=== PATIENT | female | born 1970 | race Caucasian/White ===

== ENCOUNTER 2019-11-07 14:17 | Observation (INO) | payer SELFPAY ==
[2019-11-07] VITALS (9 sets, daily range): BP systolic 127–219; BP diastolic 85–138; PULSE 71–148; RESP 17–20; TEMP 36–37.1; O2SAT 96–99; BMI 23.3
--- NOTE | 2019-11-07 14:36 | ED_ITS ---
HPI - Neuro Symptoms/Deficit General: Chief Complaint: Neuro Symptoms/Deficit Stated Complaint: high bp, high hr Time Seen by Provider: 11/07/19 14:20 History of Present Illness: HPI Narrative: 49 yo female who presents with complaint of weakness on her left side began at 530 this morning. 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 Her says her speech is still off a little bit too. She is not had any chest pain or shortness of breath. Associated symptoms: Deny chest pain, malaise, nausea or vomiting Review of Systems Const: Denies: fever(s), chills, body aches, change in appetite, fatigue or malaise ENMT: Denies: throat pain, ear or mastoid pain, nasal discharge or nasal congestion Card: Denies: chest pain, edema, dyspnea on exertion or orthopnea Resp: Denies: dyspnea, productive cough or non-productive cough GI: Denies: abdominal pain, nausea, vomiting, hematemesis, coffee ground emesis, diarrhea, constipation, bloating, hematochezia or melena : Denies: flank pain, difficulty voiding, dysuria, urinary frequency or urinary urgency Skin/Breast: Denies: rash or pruritus PFSH ED PFSH: Medical History Heavy drinker of alcohol Initially stated 8-12 beers per day, later clarifies that it is on the days off. Smoking addiction 1.5 packs per day Surgical History History of History of facial surgery Hx of laparoscopic gastric banding Family History Father , Massive [place] CAD (coronary artery disease) Other Hypertension Social History Smoking and tobacco status: current every day smoker cigarettes Packs smoked per day: 1.5 Alcohol intake: current Alcohol intake frequency: 3 or more drinks per day Alcohol type: beer Desire information about alcohol rehabilitation?: Yes Counseling given: Yes Last alcohol use date: 11/06/19 Lives independently: Yes Household members: significant other Marital status: Single Marital status details: Engaged Current occupational status: employed NIH stroke score NIHSS: Level Of Consciousness - 1a: 0 Level Of Consciousness Questions - 1b: Both Correct Level Of Consciousness Commands - 1c: Both Correct Best Gaze - 2: Normal Visual Guerra - 3: No Visual Loss Facial Palsy - 4: Normal Motor Arm Right - 5: No Drift Motor Arm Left - 5: No Drift Motor Leg Right - 6: No Drift Motor Leg Left - 6: No Drift Limb Ataxia - 7: Present In One Limb Sensory - 8: Normal Best Language - 9: No Aphasia Dysarthia - 10: Mild/Moderate Dysarthia Extinction And Inattention - 11: 0 Score: Total Score: 2 Physical Exam Const: COMMON NORMALS: no acute distress GENERAL APPEARANCE: cooperative and comfortable ORIENTATION/CONSCIOUSNESS: Yes awake, Yes oriented to person, Yes oriented to place and Yes oriented to time HENMT: COMMON NORMALS: normocephalic, atraumatic, moist oral mucous membranes and oropharynx normal HEAD & SCALP: normocephalic and atraumatic Eye: COMMON NORMALS: Equal, round and reactive pupils present, EOMs intact bilaterally, conjunctivae normal and no scleral icterus CONJUNCTIVA: Yes conjunctivae normal PUPIL: Yes Equal, round and reactive pupils present Neck/C-Spine: COMMON NORMALS: full ROM, no lymphadenopathy, supple and no JVD Lymph: LYMPHATIC: no lymphadenopathy noted and no lymphedema noted Resp: COMMON NORMALS: normal respiratory effort, No retractions, No use of accessory muscles and clear to auscultation bilaterally AUSCULTATION: clear to auscultation bilaterally Cardio: COMMON NORMALS: no JVD, regular rate, regular rhythm and No murmurs present (Cardio) RATE: regular rate RHYTHM: regular rhythm GI: COMMON NORMALS: Soft to palpation and No hepatosplenomegaly present AUSCULTATION: Yes normoactive bowel sounds PALPATION: Yes Soft to palpation, No Tenderness to palpation present (GI), No Guarding due to palpation present (GI) and Yes No hepatosplenomegaly present Extremity: COMMON NORMALS: normal to inspection, capillary refill normal, no clubbing, cyanosis or edema, no calf tenderness and no pedal edema Neuro: SENSORIUM/ORIENTATION: Yes oriented to person, Yes oriented to place and Yes oriented to time Skin: COMMON NORMALS: no rashes or lesions noted GENERAL SKIN EXAM: no rashes or lesions noted Course Vital Signs: Vital signs: Vital Signs Temperature 98.5 F 11/08/19 13:14 Pulse Rate 79 11/08/19 13:14 Respiratory Rate 18 11/08/19 13:14 Blood Pressure 128/80 11/08/19 13:14 Pulse Oximetry 98 11/08/19 13:14 MDM - Neuro Symptoms/Deficit Lab Data: Labs: Lab Results 11/07/19 11/07/19 11/07/19 Range/Units 14:30 14:30 14:30 WBC 9.3 (4.0-10.0) 10^3/ uL RBC 5.77 H (4.1-5.3) 10^6/u L Hgb 16.9 H (11.5-15.3) g/dL Hct 52.1 H (37.0-47.0) % MCV 90.3 (81-99) fL MCH 29.3 (28.0-34.0) pg MCHC 32.4 (30.0-36.0) g/dL RDW 13.8 (12.1-15.1) % Plt Count 312 (130-400) 10^3/c mm MPV 10.0 (7.4-10.4) fL Neut % (Auto) 73.4 % Lymph % (Auto) 18.2 % [place] % (Auto) 5.9 % Eos % (Auto) 1.8 % Baso % (Auto) 0.4 % Neut # (Auto) 6.83 (1.8-7.7) 10^3/u L Lymph # (Auto) 1.7 (0.8-4.8) 10^3/u L [place] # (Auto) 0.6 (0.2-0.9) 10^3/u L Eos # (Auto) 0.2 (0.0-0.8) 10^3/u L Baso # (Auto) 0.0 (0.0-0.1) 10^3/u L Nucleated RBC % (a uto) 0 % Nucleated RBCs # 0.0 /100WBC PT 11.70 (10.5-13.3) SECO NDS INR 0.83 (0.8-1.2) APTT 25.0 (23.9-36.7) SECO NDS Sodium 139 (136-145) mmol/L Potassium 4.6 (3.5-5.1) mmol/L Chloride 99 (98-107) mmol/L Carbon Dioxide 23 (22-29) mmol/L Anion Gap 21.6 H (5-19) BUN 7 (6-20) mg/dL Creatinine 0.8 (0.5-0.9) mg/dL GFR Calculation 76.9 L (90-130) mL/min Glucose 88 (65-115) mg/dL Estimat Average Gl ucose Hemoglobin A1c (4.0-6.0) % Calculated Osmolal ity 283 L (285-295) mOsm/k g Calcium 10.6 H (8.5-10.5) mg/dL Magnesium (1.7-2.3) mg/dL Total Bilirubin 0.6 (0.15-1.2) mg/dL AST 48 H (0-32) U/L ALT 27 (0-33) U/L Alkaline Phosphata se 90 (35-105) IU/L Total Protein 8.1 (6.6-8.7) g/dL Albumin 5.2 (3.5-5.2) g/dL Globulin 2.9 (1.3-4.6) g/dL 11/07/19 11/07/19 Range/Units 14:30 14:30 WBC (4.0-10.0) 10^3/ uL RBC (4.1-5.3) 10^6/u L Hgb (11.5-15.3) g/dL Hct (37.0-47.0) % MCV (81-99) fL MCH (28.0-34.0) pg MCHC (30.0-36.0) g/dL RDW (12.1-15.1) % Plt Count (130-400) 10^3/c mm MPV (7.4-10.4) fL Neut % (Auto) % Lymph % (Auto) % [place] % (Auto) % Eos % (Auto) % Baso % (Auto) % Neut # (Auto) (1.8-7.7) 10^3/u L Lymph # (Auto) (0.8-4.8) 10^3/u L [place] # (Auto) (0.2-0.9) 10^3/u L Eos # (Auto) (0.0-0.8) 10^3/u L Baso # (Auto) (0.0-0.1) 10^3/u L Nucleated RBC % (a uto) % Nucleated RBCs # /100WBC PT (10.5-13.3) SECO NDS INR (0.8-1.2) APTT (23.9-36.7) SECO NDS Sodium (136-145) mmol/L Potassium (3.5-5.1) mmol/L Chloride (98-107) mmol/L Carbon Dioxide (22-29) mmol/L Anion Gap (5-19) BUN (6-20) mg/dL Creatinine (0.5-0.9) mg/dL GFR Calculation (90-130) mL/min Glucose (65-115) mg/dL Estimat Average Gl ucose 103 Hemoglobin A1c 5.2 (4.0-6.0) % Calculated Osmolal ity (285-295) mOsm/k g Calcium (8.5-10.5) mg/dL Magnesium 2.0 (1.7-2.3) mg/dL Total Bilirubin (0.15-1.2) mg/dL AST (0-32) U/L ALT (0-33) U/L Alkaline Phosphata se (35-105) IU/L Total Protein (6.6-8.7) g/dL Albumin (3.5-5.2) g/dL Globulin (1.3-4.6) g/dL Discharge Plan Discharge Patient Disposition: Admitted As Inpatient Admit Provider: Joby Zamudoi Clinical Impression: CVA (cerebral vascular accident) Condition: Stable Discharge Diet: Cardiac Discharge Activity: Resume usual activity Interventions: ED Discharge Assessment Last Done: 11/07/19 16:14 ED Charges Last Done: 11/07/19 16:16 Discharge Date/Time: 11/07/19 16:18 Coding Level of Care Code ED Information Technology Analyst for Cheyenne German
--- NOTE | 2019-11-07 14:39 | CTR_ITS ---
PROCEDURE INFORMATION: Exam: CT Head Without Contrast Exam date and time: 11/07/2019 2:45 PM Age: 49 years old Clinical indication: Weakness, facial; Additional info: Symptoms of acute stroke TECHNIQUE: Imaging protocol: Computed tomography of the head without contrast. Radiation optimization: All CT scans at this facility use at least one of these dose optimization techniques: automated exposure control; mA and/or kV adjustment per patient size (includes targeted exams where dose is matched to clinical indication); or iterative reconstruction. COMPARISON: No relevant prior studies available. RADIATION DOSE METRICS: Total DLP (mGy-cm): 775.47 FINDINGS: Brain: Normal. No hemorrhage. Unremarkable white matter. No mass effect. Ventricles: Normal. No ventriculomegaly. Bones/joints: Unremarkable. No acute fracture. Sinuses: Visualized sinuses are unremarkable. No fluid levels. Mastoid air cells: Visualized mastoid air cells are well aerated. Soft tissues: Unremarkable. CT/CT head wo con* [id number] IMPRESSION: No acute intracranial abnormality. Radiation Dose CTDIVOL = (mGy): DLP = 775.47 (mGy-cm)
--- NOTE | 2019-11-07 14:39 | XRR_ITS ---
PROCEDURE INFORMATION: Exam: XR Chest, 1 View Exam date and time: 11/07/2019 2:42 PM Age: 49 years old Clinical indication: Other: Weakness; Additional info: Weakness, CVA TECHNIQUE: Imaging protocol: XR of the chest Views: 1 view. COMPARISON: No relevant prior studies available. FINDINGS: Lungs: Unremarkable. No consolidation. Pleural space: Unremarkable. No pleural effusion. No pneumothorax. Heart/Mediastinum: Unremarkable. No cardiomegaly. Bones/joints: No acute abnormality. XR/XR chest 1V portable [id number] IMPRESSION: No acute findings.
--- NOTE | 2019-11-07 14:39 | ECG_ITS ---
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 Measurements Intervals Lilly Rate: 92 P: 50 KS: 134 QRS: 22 QRSD: 93 T: 48 QT: 391 QTc: 484 Interpretive Statements SINUS RHYTHM POSSIBLE RIGHT VENTRICULAR CONDUCTION DELAY [RSR (QR) IN V1/V2] No previous ECG available for comparison Electronically Signed On 11-07-2019 20:43:13 CDT by Ihsan Osorio M.D. [id number]
--- NOTE | 2019-11-07 14:39 | CTR_ITS ---
PROCEDURE INFORMATION: Exam: CT Angiography Head With Contrast Exam date and time: 11/07/2019 2:45 PM Age: 49 years old Clinical indication: Weakness; Additional info: Left sided weakness TECHNIQUE: Imaging protocol: Computed tomography angiography of the head with intravenous contrast. 3D rendering: MIP and/or 3D reconstructed images were created by the technologist. Radiation optimization: All CT scans at this facility use at least one of these dose optimization techniques: automated exposure control; mA and/or kV adjustment per patient size (includes targeted exams where dose is matched to clinical indication); or iterative reconstruction. Contrast material: OMNIPAQUE 350; Contrast volume: 95 ml; Contrast route: INTRAVENOUS (IV); COMPARISON: CT head wo con* [id number] 11/07/2019 2:29 PM RADIATION DOSE METRICS: Total DLP (mGy-cm): 1716.33 FINDINGS: ANTERIOR CIRCULATION: Right internal carotid artery: Unremarkable. Intracranial segment is patent with no significant stenosis. No aneurysm. Right middle cerebral artery: Unremarkable. No occlusion or significant stenosis. No aneurysm. Right anterior cerebral artery: Unremarkable. No occlusion or significant stenosis. No aneurysm. Left internal carotid artery: Unremarkable. Intracranial segment is patent with no significant stenosis. No aneurysm. Left middle cerebral artery: Unremarkable. No occlusion or significant stenosis. No aneurysm. Left anterior cerebral artery: Unremarkable. No occlusion or significant stenosis. No aneurysm. POSTERIOR CIRCULATION: Right vertebral artery: Unremarkable. No occlusion or significant stenosis. No aneurysm. Left vertebral artery: Unremarkable. No occlusion or significant stenosis. No aneurysm. Basilar artery: Unremarkable. No occlusion or significant stenosis. No aneurysm. Right posterior cerebral artery: Unremarkable. No occlusion or significant stenosis. No aneurysm. Left posterior cerebral artery: Unremarkable. No occlusion or significant stenosis. No aneurysm. IMPRESSION: Patent intracranial arteries. PROCEDURE INFORMATION: Exam: CT Angiography Neck With Contrast Exam date and time: 11/07/2019 2:45 PM Age: 49 years old Clinical indication: Weakness; Additional info: Left sided weakness TECHNIQUE: Imaging protocol: Computed tomography angiography of the neck with intravenous contrast. 3D rendering: MIP and/or 3D reconstructed images were created by the technologist. Radiation optimization: All CT scans at this facility use at least one of these dose optimization techniques: automated exposure control; mA and/or kV adjustment per patient size (includes targeted exams where dose is matched to clinical indication); or iterative reconstruction. Contrast material: OMNIPAQUE 350; Contrast volume: 95 ml; Contrast route: INTRAVENOUS (IV); COMPARISON: CT head wo con* [id number] 11/07/2019 2:29 PM RADIATION DOSE METRICS: Total DLP (mGy-cm): 1716.33 FINDINGS: Right common carotid artery: No stenosis. No dissection or occlusion. Right internal carotid artery: Mild atherosclerotic plaque deposition in the proximal right ICA causes mild stenosis. Right external carotid artery: No occlusion or stenosis of the origin. Right vertebral artery: No stenosis. No dissection or occlusion. Left common carotid artery: No stenosis. No dissection or occlusion. Left internal carotid artery: Mild atherosclerotic plaque deposition in the proximal left ICA causes mild stenosis. Left external carotid artery: No occlusion or stenosis of the origin. Left vertebral artery: No stenosis. No dissection or occlusion. Bones/joints: [id number] degenerative changes are observed in the cervical spine. 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 No area of significant canal stenosis. No cervical spine fracture is seen. Spinal alignment is normal. Soft tissues: Normal. No significant soft tissue swelling. CT/CT angio headneck* [id number] IMPRESSION: Mild stenoses of bilateral proximal ICAs REFERENCES: NASCET CRITERIA. The degree of internal carotid artery stenosis is based on NASCET criteria. Normal is no stenosis. Mild is less than 50% stenosis. Moderate is 50-69% stenosis. Severe is 70% to 99% stenosis. Total occlusion is no detectable patent lumen. Radiation Dose CTDIVOL = (mGy): DLP = 1716.33~1716.33 (mGy-cm)
[2019-11-07 14:51] LABS: Basophils % 0.4 %; Eosinophils # 0.2 10^3/uL (0.0-0.8); Eosinophils % 1.8 %; Hematocrit 52.1 % (37.0-47.0); Hemoglobin 16.9 g/dL (11.5-15.3); Lymphocytes # 1.7 10^3/uL (0.8-4.8); Lymphocytes % 18.2 %; Mean Corpuscular HGB Conc 32.4 g/dL (30.0-36.0); Mean Corpuscular Hemoglobin 29.3 pg (28.0-34.0); Mean Corpuscular Volume 90.3 fL (81-99); Monocytes # 0.6 10^3/uL (0.2-0.9); Monocytes % 5.9 %; Neutrophils # 6.83 10^3/uL (1.8-7.7); Neutrophils % 73.4 %; Nucleated Red Blood Cells % 0 %; Platelet Count 312 10^3/cmm (130-400); Red Blood Count 5.77 10^6/uL (4.1-5.3); Red Cell Distribution Width 13.8 % (12.1-15.1); White Blood Count 9.3 10^3/uL (4.0-10.0)
[2019-11-07 14:57] LABS: INR 0.83 (0.8-1.2)
[2019-11-07] MEDS: iohexol 350 mg/mL 100 mL Btl IV (14:57)
[2019-11-07 15:08] LABS: Alanine Aminotransferase 27 U/L (0-33); Albumin Level 5.2 g/dL (3.5-5.2); Alkaline Phosphatase 90 IU/L (35-105); Anion Gap 21.6 (5-19); Aspartate Amino Transferase 48 U/L (0-32); Blood Urea Nitrogen 7 mg/dL (6-20); Calcium 10.6 mg/dL (8.5-10.5); Carbon Dioxide 23 mmol/L (22-29); Chloride 99 mmol/L (98-107); Globulin 2.9 g/dL (1.3-4.6); Glomerular Filtration Rate 76.9 mL/min (90-130); Glucose 88 mg/dL (65-115); Osmolality Calculated 283 mOsm/kg (285-295); Potassium 4.6 mmol/L (3.5-5.1); Sodium 139 mmol/L (136-145); Total Bilirubin 0.6 mg/dL (0.15-1.2); Total Protein 8.1 g/dL (6.6-8.7)
[2019-11-07] MEDS: labetalol 5 mg/mL SDV 20mL 10 MG IV (15:44)
--- NOTE | 2019-11-07 16:59 | PM.HP ---
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 She did not have the symptoms the night before. She also describes having some pain in her head , and some mild dizziness. She denies any past history of stroke. In ER she was noted with improvement in previous symptoms, and with perhaps minimal left-sided weakness remaining, perhaps minimal if any slurred speech, but with some persistent facial droop. Blood pressure on presentation 219/138. CT of the head is unremarkable. CTA of the head with mild bilateral carotid stenosis. Blood pressure in ER improved initially down to 165/105, during my visit again is up to 183/116. Observation hospital is requested due to suspicion of acute CVA outside of therapeutic window for TPA. Elevated blood pressure. She denies knowing of history of hypertension in the past. She does state that sometime in the past has had tremors as a symptom of withdrawal from alcohol. Denies severe withdrawal. She has been trying to cut down how much she drinks. She knows she needs to quit smoking. She denies any drug use. Review of Systems Const: Reports: other (Headache this morning, mild dizziness); Denies: fever(s), chills, body aches or malaise Eyes: Denies: change in vision or eye redness ENMT: Denies: throat pain, oral sores or ear or mastoid pain Card: Denies: chest pain, edema, pre-syncope or dyspnea on exertion Resp: Denies: dyspnea, productive cough, change in phlegm color or hemoptysis GI: Denies: abdominal pain, nausea, vomiting, diarrhea, constipation, hematochezia or melena : Denies: flank pain, urinary frequency or hematuria Musc: Denies: back pain, joint swelling or joint redness Skin/Breast: Denies: rash, sores or new lesions Neuro: Reports: headache(s), weakness in extremities, dizziness and Slurred speech present; Denies: numbness in extremities, sensory changes, confusion, difficulty communicating thoughts, seizure-like activity or involuntary movements Endo: Denies: polyuria or polydipsia Shawn/Lymph: Denies: easy bleeding or purpura All/Imm: Denies: urticaria, throat swelling or tongue swelling Medications/Allergies Home Medications Medication Instructions Recorded Confirmed Last Taken Type 5 Hour Energy Shots See Rx Instructions .ROUTE .COMPLEX 11/07/19 11/07/19 11/06/19 History Vitamin C Gummies 1,500 mg PO QAM 11/07/19 11/07/19 11/06/19 History Allergies Allergy/AdvReac Type Severity Reaction Status Date / Time Penicillins Allergy Unknown Verified 11/07/19 15:17 PFSH Acute PFSH: Medical History Heavy drinker of alcohol Smoking addiction Surgical History History of History of facial surgery Hx of laparoscopic gastric banding Family History Father , Massive [place] CAD (coronary artery disease) Other Hypertension Social History Smoking and tobacco status: current every day smoker cigarettes Packs smoked per day: 1.5 Alcohol intake: current Alcohol intake frequency: 3 or more drinks per day Alcohol type: beer Alcohol use comment: 8- / day Desire information about alcohol rehabilitation?: Yes Counseling given: Yes Last alcohol use date: 11/06/19 Substance/Drug Use: never Lives independently: Yes Household members: significant other Marital status: Single Marital status details: Engaged Current occupational status: employed Vitals/I&O/Wt Last Vital Signs Temp 96.8 F L 11/07/19 14:19 Pulse 95 11/07/19 16:16 Resp 20 H 11/07/19 16:16 BP 127/102 11/07/19 16:16 Pulse Ox 98 11/07/19 16:16 Weight last 48 hrs Weight 63.503 kg Physical Exam Const: COMMON NORMALS: no acute distress and patient oriented x3 HENMT: COMMON NORMALS: oropharynx normal OTHER: About 3 cm abrasion on the left forehead, clean appearing Neck/C-Spine: COMMON NORMALS: no JVD Resp: COMMON NORMALS: normal respiratory effort and clear to auscultation bilaterally AUSCULTATION: clear to auscultation bilaterally Cardio: COMMON NORMALS: no JVD, regular rhythm, S1 normal heart sound present, S2 normal heart sound present and No murmurs present (Cardio) RHYTHM: regular rhythm HEART SOUNDS: S1 normal heart sound present and S2 normal heart sound present GI: COMMON NORMALS: Normal to inspection, nondistended, normoactive bowel sounds present, Soft to palpation and non-tender PALPATION: Yes Soft to palpation Extremity: COMMON NORMALS: no joint enlargement and no pedal edema Neuro: COMMON NORMALS: patient oriented x3 SENSORIUM/ORIENTATION: Yes alert MENINGEAL SIGNS: Yes no meningeal signs COORDINATION/BALANCE: [id number]-[id number] test normal SPEECH: speech normal (There is minute afebrile dysarthria, not perceptible by me, she feels it is almost entirely resolved) SENSORY EXAM: Yes Normal double simultaneous stimulation for sensation and other (Symmetrical, normal) MOTOR EXAM: 5/5 motor strength present throughout (Left side there is perhaps minimal if at all weakness) COORDINATION: [id number] test normal and [id number]-rk-[id number] test normal OTHER: There is some minor left-sided facial droop which persists, although the nasolabial fold is actually somewhat flatter on the right Skin: COMMON NORMALS: no rashes or lesions noted GENERAL SKIN EXAM: no rashes or lesions noted Data : 11/07/19 14:30 11/07/19 14:30 A&P Assessment and plan (1) CVA (cerebral vascular accident): Acute CVA after waking up this morning with left-sided weakness, dysarthria. Hypertensive urgency on presentation. Symptoms mostly resolved. Does have persistence of some facial droop, minimal if any left-sided weakness, minimal if any dysarthria. Was not a candidate for TPA. No major vessel occlusion on CTA. No bleeding on CT of the head. Started on aspirin. Statin. Discussed concerns and findings with her. At this time we will only lower her blood pressure gradually, do not allow blood pressure above 220/120. Did respond well to labetalol in ER. Fast heart rate on presentation improved. EKG without atrial fibrillation. Will monitor on telemetry. Assess TTE. Assess A1c. Speech therapy assessment. Occupational Therapy assessment. Discussed would benefit from MRI for closer assessment of CVA, for prognostication and to guide our further tests and treatment. She would rather have this done outpatient. Understands the reasons for having a test done. She is initially asking if she can return home today, however, agrees to stay given new CVA, very high blood pressures. Discussion of risk factors with her she understands that she needs to stop drinking alcohol, stop smoking as both of these are contributing to significant increase in risk of CVA. She was initially reluctant, but we discussed we may ask case management to provide information regards to her rehabilitation from alcohol dependence, and she does agree. She understands would benefit from follow-up with neurology in office as well, and says intends to do so. Bedside evaluation of swallowing was done prior to arrival on the floor, she did drink some water, and did well with it. Denies any cough. She understands to let us know if there is any worsening in her symptoms. Status: Acute (2) Hypertensive urgency: Very elevated blood pressure on presentation, 219/138. She is not aware of history of hypertension. She understands that heavy alcohol use is a high risk factor for hypertension. Appears she has some hypertension in her family as well. At this time will manage hypertensive urgency, bring down blood pressure slowly close to avoid rapid decrease. Maintain blood pressure below 220/120. As long as it is decreasing slowly, may initiate some oral therapy as well. Maintain cardiac diet. Provide information regarding alcohol cessation. We will check troponin EKG series to exclude cardiac ischemia due to extreme blood pressure elevation. She denies any chest pain. EKG without signs of ischemia. Status: Acute (3) Heavy drinker of alcohol: 8-12 beers per day. Last drink was yesterday. Will monitor for any signs of withdrawal with CIWA protocol. Replace thiamine, folic acid. She was initially reluctant, but we discussed regarding the risks of continued alcohol use, and she is agreeable to speak with case management and receives information regarding debilitation. Understands that she needs to stop drinking. Status: Acute (4) Smoking addiction: We discussed smoking cessation for 4 minutes, together with her other risk factors this is also contributing to her cardiovascular risk significantly. She smokes 1.5 packs/day. She understands that she needs to stop smoking due to risk of recurrence of stroke, leading to possibly severe disability or . Other cardiovascular problems, in addition to other complications. She is agreeable for nicotine replacement here with patch, gum. Status: Acute Attestations Medical Necessity Statement*: Place in observation. Coding Level of Care Code Acute Traffic And Transport Planner for Cheyenne German Diagnoses CVA (cerebral vascular accident) I63.9 Hypertensive urgency I16.0 Heavy drinker of alcohol Z78.9 Smoking addiction F17.200
[2019-11-07 17:06] LABS: Add Urine Microscopic? NO
[2019-11-07 17:12] LABS: Bilirubin Urine Neg (NEGATIVE); Blood Urine Neg (Negative); Glucose Urine UA Norm (Normal); Ketones Urine 1+ (Negative); Nitrate Urine Negative (Negative); Protein Urine Neg (Negative); Urine Appearance Clear (CLEAR); Urine Color Yellow (Yellow); pH Urine 5 (5-7)
[2019-11-07 17:13] LABS: Leukocyte Esterase Urine Negative (Negative); Urobilinogen Urine Norm (Negative)
[2019-11-07 17:22] LABS: Amphetamines Screen Urine Negative (Negative); Barbiturates Screen Urine Negative (Negative); Benzodiazepines Screen Urine Negative (Negative); Cocaine Screen Urine Negative (Negative); Opiate Screen Urine Negative (Negative); PCP Screen Urine Negative (Negative); THC Screen Urine Negative (Negative)
[2019-11-07] MEDS: aspirin 81 mg Chew Tablet 324 MG PO (17:49)
[2019-11-07 18:08] LABS: Estmated Average Glucose 103; Hemoglobin A1C 5.2 % (4.0-6.0)
[2019-11-07] MEDS: nicotine 21 mg Patch 1 PATCH TRANSDERMA (18:11)
[2019-11-07 18:53] LABS: Troponin(5th) Baseline 10 ng/L (0-10)
--- NOTE | 2019-11-07 20:05 | ECG_ITS ---
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 Measurements Intervals [place] Rate: 75 P: 61 PA: 135 QRS: 65 QRSD: 98 T: 68 QT: 433 QTc: 484 Interpretive Statements SINUS RHYTHM Compared to ECG 11/07/2019 15:52:04 No significant changes Electronically Signed On 11-07-2019 20:48:53 CDT by Ihsan Osorio M.D. [id number]
[2019-11-07 21:21] LABS: Troponin 5 2HR 9.78 ng/L (0-10)
[2019-11-07 21:25] LABS: Troponin 5 2HR Delta -0.22 ABS# (0-10)
[2019-11-07] MEDS: atorvastatin 40 mg Tablet PO (21:37)
[2019-11-08] VITALS (7 sets, daily range): BP systolic 128–144; BP diastolic 77–86; PULSE 71–79; RESP 18; TEMP 36.4–36.9; O2SAT 96–98
[2019-11-08 03:58] LABS: Basophils % 0.6 %; Eosinophils # 0.2 10^3/uL (0.0-0.8); Eosinophils % 4.4 %; Hematocrit 43.2 % (37.0-47.0); Lymphocytes # 1.1 10^3/uL (0.8-4.8); Lymphocytes % 23.7 %; Mean Corpuscular HGB Conc 32.4 g/dL (30.0-36.0); Mean Corpuscular Hemoglobin 29.7 pg (28.0-34.0); Mean Corpuscular Volume 91.5 fL (81-99); Mean Platelet Volume 9.7 fL (7.4-10.4); Monocytes # 0.5 10^3/uL (0.2-0.9); Monocytes % 9.4 %; Neutrophils # 2.96 10^3/uL (1.8-7.7); Neutrophils % 61.5 %; Nucleated Red Blood Cells % 0 %; Platelet Count 223 10^3/cmm (130-400); Red Blood Count 4.72 10^6/uL (4.1-5.3); Red Cell Distribution Width 13.7 % (12.1-15.1); White Blood Count 4.8 10^3/uL (4.0-10.0)
[2019-11-08 04:18] LABS: Alanine Aminotransferase 20 U/L (0-33); Albumin Level 3.8 g/dL (3.5-5.2); Alkaline Phosphatase 62 IU/L (35-105); Anion Gap 10.6 (5-19); Aspartate Amino Transferase 34 U/L (0-32); Blood Urea Nitrogen 9 mg/dL (6-20); Carbon Dioxide 30 mmol/L (22-29); Chloride 100 mmol/L (98-107); Globulin 2.5 g/dL (1.3-4.6); Glomerular Filtration Rate 89.7 mL/min (90-130); Glucose 90 mg/dL (65-115); Osmolality Calculated 280 mOsm/kg (285-295); Potassium 3.6 mmol/L (3.5-5.1); Sodium 137 mmol/L (136-145); Total Bilirubin 0.4 mg/dL (0.15-1.2); Total Protein 6.3 g/dL (6.6-8.7)
--- NOTE | 2019-11-08 08:34 | PC.OT ---
OT note: OT screen completed. Pt independently ambulated in room, completed toilet transfer, picked up items from floor, and doffed and donned shoes. Pt reported no difficulties and no loss of balance shown. BUE appeared equal in ROM and strength. Pt denies altered sensation or vision. No OT recommended at this time.
[2019-11-08] MEDS: nicotine 21 mg Patch 1 PATCH TRANSDERMA (09:32)
[2019-11-08] MEDS: folic acid 1 mg Tablet PO (09:32)
[2019-11-08] MEDS: aspirin 325 mg Tablet PO (09:32)
[2019-11-08] MEDS: multivitamin therapeutic Tablet 1 TAB PO (09:32)
[2019-11-08] MEDS: thiamine 100 mg Tablet PO (09:32)
--- NOTE | 2019-11-08 11:25 | PC.CHAP ---
Pastoral Care Encounter/Spiritual Assessment Type of Contact [] Declined product promoter sales person visit [] Patient/Family/Request visit [] Outpatient visit [] Follow-up visit [] Physician referral [] Code/Alert [X] Routine visit [] Staff referral [] Actively dying [] Patient sleeping [] Family support [] [] Out of room [] Palliative care [] [] Receiving care in room [] Pre-surgical visit [] Trauma [] Long length of stay [] ICU visit [] Other: Relational/Emotional Strength [] Patient feels connected with others/family/visitors/staff [] Distress [] Loneliness/isolation [] Abandonment Spirituality of Patient [] Person of Chana [] Attends Mu-Ism of their Chana [] Believes in Prayer [] Reads Bible or Pentecostalism materials [] There are Spiritual issues to be addressed Director Of Pulmonary Unit Interventions [] Prayer [] Active listening [X] Non-anxious presence [] Spiritual/emotional support [] Crisis/trauma care [] Spiritual counseling [] Bereavement support [] Provided bereavement packet [] Provided Bible/devotional materials [] Provided toy/stuffed animal, coloring book to patient or family member [] Provided Communion [] Anointing/[place] [] Salvation [] Completed spiritual assessment [X] Other: advocacy Impact on Illness or Injury [] Angry [] Fearful [] Anxious [] Often cries [] Exhaustion [] Unable to work [] Unable to attend zoroastrianism [] Unable to walk/stand [] Unable to read [] Unable to drive [] Unable to eat/drink [] Unable to sleep [] Unable to be with family [] Patient intubated [] Other: Summary: When I entered the room, the pt stated that she needed to use the restroom so I left to find the nurse. Time spent with patient
--- NOTE | 2019-11-08 12:05 | PM.DCS ---
Discharge Providers Date of Admission: 11/07/19 15:43 Date of Discharge: November 08, 2019 Attending Provider at Admission: Joby Zamudio Attending Provider at Discharge: Joby Zamudio Diagnoses at Discharge Discharge Diagnosis (1) CVA (cerebral vascular accident): Status: Acute Problem details: Suspected small CVA with protracted symptoms of mild left-sided weakness, left-sided facial droop, mild dysarthria. Today symptoms completely resolved. Does have some asymmetry of nasolabial folds, although right side appears flatter. Follow-up MRI brain. Follow-up with neurology in office. Continue to encourage smoking cessation. Abstinence from alcohol. Close blood pressure monitoring and treatment of hypertension. (2) Hypertensive urgency: Status: Acute Problem details: Initial BP 219/138 (3) Heavy drinker of alcohol: Status: Acute Problem details: Initially stated 8-12 beers per day, later clarifies that it is on the days off. 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 She did not have the symptoms the night before. She also describes having some pain in her head , and some mild dizziness. She denies any past history of stroke. In ER she was noted with improvement in previous symptoms, and with perhaps minimal left-sided weakness remaining, perhaps minimal if any slurred speech, but with some persistent facial droop. Blood pressure on presentation 219/138. CT of the head is unremarkable. CTA of the head with mild bilateral carotid stenosis. Was given labetalol for hypertensive emergency. Blood pressure in ER improved initially down to 165/105, during my visit again is up to 183/116. She was outside the window for TPA treatment. CTA was obtained with mild bilateral carotid stenosis noted, without other large vessel occlusion. She was started on aspirin, statin due to possible CVA due to residual symptoms. She preferred to complete evaluation by MRI on outpatient basis, and is given referral for this. Please follow-up results. On telemetry and EKG no atrial fibrillation was noted. A1c is normal. Echocardiogram showed mild LVH, mild global hypokinesis. Troponin not suggestive of acute IL. She has had no chest pain. Blood pressures gradually trended down and improved in the hospital, ranging between 120s-140s over 70s-80s. Discussed with her in detail abstinence from alcohol, as heavy alcohol consumption can further exacerbate hypertension, lead to hypertensive episodes, with other complication including withdrawal. Rehabilitation options were provided for her by case management social worker. We also discussed smoking cessation in detail, and she verbalized understanding that she needs to quit smoking due to multiple risks. We also discussed blood pressure monitoring at home multiple times a day, writing down values to bring to the appointment. Discussed in case of elevated blood pressure to take extra dose of blood pressure medication, and if blood pressure still elevated to proceed to ER to avoid episodes of hypertensive urgency. She was assessed by speech therapy in the hospital and did well. There is some persistence of minimal facial droop on the left, although nasolabial fold is actually flatter on the right. She is agreeable to follow-up with neurology in office, and continue follow-up with primary care provider for further optimization of risk factors of cardiovascular disease to prevent recurrence of stroke. In case of recurrence of any concerning symptoms she is instructed to seek medical attention immediately. Physical Exam Const: COMMON NORMALS: no acute distress and patient oriented x3 HENMT: COMMON NORMALS: oropharynx normal Neck/C-Spine: COMMON NORMALS: no JVD Resp: COMMON NORMALS: normal respiratory effort and clear to auscultation bilaterally AUSCULTATION: clear to auscultation bilaterally Cardio: COMMON NORMALS: no JVD, regular rhythm, S1 normal heart sound present, S2 normal heart sound present and No murmurs present (Cardio) RHYTHM: regular rhythm HEART SOUNDS: S1 normal heart sound present and S2 normal heart sound present GI: COMMON NORMALS: Normal to inspection, nondistended, normoactive bowel sounds present, Soft to palpation and non-tender PALPATION: Yes Soft to palpation Extremity: COMMON NORMALS: no joint enlargement and no pedal edema Neuro: COMMON NORMALS: patient oriented x3 and moves all extremities Skin: COMMON NORMALS: no rashes or lesions noted GENERAL SKIN EXAM: no rashes or lesions noted Discharge Data Data Completed and Pending: Completed Studies During Hospitalization Category Date Time Status CT angio headneck * [id number] Urge nt Cat Scan 11/07/19 14:[address] head wo con* 7 [id number] Stat Cat Scan 11/07/19 14:39 Completed XR chest 1V vaishali ble [id number] Stat Exams 11/07/19 14:39 Completed Pending at discharge Category Date Time Status CV echo complete* [id number] Routine Ultrasound 11/08/19 17:06 Taken Labs from last 24 hours 11/08/19 11/08/19 11/07/19 03:40 03:40 20:40 WBC 4.8 RBC 4.72 Hgb 14.0 Hct 43.2 MCV 91.5 MCH 29.7 MCHC 32.4 RDW 13.7 Plt Count 223 MPV 9.7 Neut % (Auto) 61.5 Lymph % (Auto) 23.7 [place] % (Auto) 9.4 Eos % (Auto) 4.4 Baso % (Auto) 0.6 Neut # (Auto) 2.96 Lymph # (Auto) 1.1 [place] # (Auto) 0.5 Eos # (Auto) 0.2 Baso # (Auto) 0.0 Nucleated RBC % (a uto) 0 Nucleated RBCs # 0.0 PT INR APTT Sodium 137 Potassium 3.6 Chloride 100 Carbon Dioxide 30 H Anion Gap 10.6 BUN 9 Creatinine 0.7 GFR Calculation 89.7 L Glucose 90 Estimat Average Gl ucose Hemoglobin A1c Calculated Osmolal ity 280 L Calcium 9.0 Magnesium Total Bilirubin 0.4 AST 34 H ALT 20 Alkaline Phosphata se 62 Troponin T Baselin e Troponin T 120 Min la posta 9.78 Delta Troponin T -0.22 L Total Protein 6.3 L D Albumin 3.8 Globulin 2.5 Urine Color Urine Appearance Urine pH Ur Specific Gravit y Urine Protein Urine Glucose (UA) Urine Ketones Urine Blood Urine Nitrate Urine Bilirubin Urine Urobilinogen Ur Leukocyte Tracie ase Urine Opiates Scre en Ur Barbiturates Sc reen Ur Phencyclidine S crn Ur Amphetamines Sc reen U Benzodiazepines Scrn Urine Cocaine Scre en U Marijuana (THC) Screen 11/07/19 11/07/19 11/07/19 18:21 16:04 16:04 WBC RBC Hgb Hct MCV MCH MCHC RDW Plt Count MPV Neut % (Auto) Lymph % (Auto) [place] % (Auto) Eos % (Auto) Baso % (Auto) Neut # (Auto) Lymph # (Auto) [place] # (Auto) Eos # (Auto) Baso # (Auto) Nucleated RBC % (a uto) Nucleated RBCs # PT INR APTT Sodium Potassium Chloride Carbon Dioxide Anion Gap BUN Creatinine GFR Calculation Glucose Estimat Average Gl ucose Hemoglobin A1c Calculated Osmolal ity Calcium Magnesium Total Bilirubin AST ALT Alkaline Phosphata se Troponin T Baselin e 10 Troponin T 120 Min la posta Delta Troponin T Total Protein Albumin Globulin Urine Color Yellow Urine Appearance Clear Urine pH 5 Ur Specific Gravit y 1.010 Urine Protein Neg Urine Glucose (UA) Norm Urine Ketones 1+ H Urine Blood Neg Urine Nitrate Negative Urine Bilirubin Neg Urine Urobilinogen Norm Ur Leukocyte Tracie ase Negative Urine Opiates Scre en Negative Ur Barbiturates Sc reen Negative Ur Phencyclidine S crn Negative Ur Amphetamines Sc reen Negative U Benzodiazepines Scrn Negative Urine Cocaine Scre en Negative U Marijuana (THC) Screen Negative 11/07/19 11/07/19 11/07/19 14:30 14:30 14:30 WBC RBC Hgb Hct MCV MCH MCHC RDW Plt Count MPV Neut % (Auto) Lymph % (Auto) [place] % (Auto) Eos % (Auto) Baso % (Auto) Neut # (Auto) Lymph # (Auto) [place] # (Auto) Eos # (Auto) Baso # (Auto) Nucleated RBC % (a uto) Nucleated RBCs # PT INR APTT Sodium 139 Potassium 4.6 Chloride 99 Carbon Dioxide 23 Anion Gap 21.6 H BUN 7 Creatinine 0.8 GFR Calculation 76.9 L Glucose 88 Estimat Average Gl ucose 103 Hemoglobin A1c 5.2 Calculated Osmolal ity 283 L Calcium 10.6 H Magnesium 2.0 Total Bilirubin 0.6 AST 48 H ALT 27 Alkaline Phosphata se 90 Troponin T Baselin e Troponin T 120 Min la posta Delta Troponin T Total Protein 8.1 Albumin 5.2 Globulin 2.9 Urine Color Urine Appearance Urine pH Ur Specific Gravit y Urine Protein Urine Glucose (UA) Urine Ketones Urine Blood Urine Nitrate Urine Bilirubin Urine Urobilinogen Ur Leukocyte Tracie ase Urine Opiates Scre en Ur Barbiturates Sc reen Ur Phencyclidine S crn Ur Amphetamines Sc reen U Benzodiazepines Scrn Urine Cocaine Scre en U Marijuana (THC) Screen 11/07/19 11/07/19 14:30 14:30 WBC 9.3 RBC 5.77 H Hgb 16.9 H Hct 52.1 H MCV 90.3 MCH 29.3 MCHC 32.4 RDW 13.8 Plt Count 312 MPV 10.0 Neut % (Auto) 73.4 Lymph % (Auto) 18.2 [place] % (Auto) 5.9 Eos % (Auto) 1.8 Baso % (Auto) 0.4 Neut # (Auto) 6.83 Lymph # (Auto) 1.7 [place] # (Auto) 0.6 Eos # (Auto) 0.2 Baso # (Auto) 0.0 Nucleated RBC % (a uto) 0 Nucleated RBCs # 0.0 PT 11.70 INR 0.83 APTT 25.0 Sodium Potassium Chloride Carbon Dioxide Anion Gap BUN Creatinine GFR Calculation Glucose Estimat Average Gl ucose Hemoglobin A1c Calculated Osmolal ity Calcium Magnesium Total Bilirubin AST ALT Alkaline Phosphata se Troponin T Baselin e Troponin T 120 Min la posta [place] Troponin T Total Protein Albumin Globulin Urine Color Urine Appearance Urine pH Ur Specific Gravit y Urine Protein Urine Glucose (UA) Urine Ketones Urine Blood Urine Nitrate Urine Bilirubin Urine Urobilinogen Ur Leukocyte Tracie ase Urine Opiates Scre en Ur Barbiturates Sc reen Ur Phencyclidine S crn Ur Amphetamines Sc reen U Benzodiazepines Scrn Urine Cocaine Scre en U Marijuana (THC) Screen Vitals: Last Vital Signs Temp 98.5 F 11/08/19 07:53 Pulse 76 11/08/19 08:14 Resp 18 11/08/19 07:53 BP 144/86 11/08/19 07:53 Pulse Ox 96 11/08/19 08:14 Discharge Plan Discharge Patient Disposition: Home Condition: Stable Prescriptions: New folic acid 1 mg Tablet 1 mg PO DAILY Qty: 30 RF: 0 Thera 400 mcg Tablet 1 tab PO DAILY Qty: 30 RF: 0 nicotine 21 mg/24 hr Patch 24 Hour 1 patch transdermal DAILY Qty: 30 RF: 0 nicotine (polacrilex) 2 mg lozenge 2 mg BUCCAL Q5H PRN (Reason: nicotine cravings) Qty: 81 RF: 0 atorvastatin 40 mg Tablet 40 mg PO BEDTIME Qty: 30 RF: 0 thiamine mononitrate (vit B1) [Vitamin B-1 (mononitrate)] 100 mg Tablet 100 mg PO DAILY Qty: 30 RF: 0 aspirin 325 mg tablet 162.5 mg PO DAILY Qty: 15 RF: 0 amlodipine 5 mg tablet 5 mg PO DAILY Qty: 30 RF: 0 Continued 5 Hour Energy Shots See Rx Instructions .ROUTE .COMPLEX RF: 0 Vitamin C Gummies 1,500 mg PO QAM RF: 0 Other Ambulatory Orders: MR head wo/w con [id number] (Routine) Timeframe: 3 Days Facility: [facility] - Location: Radiology [facility] Ordered By: Joby Zamudio Referrals: Danay Morales MD [Physician] - 1 week (CVA) Kimberlyn Flannery APRN [Nurse Practitioner] - 4-7 days Discharge Diet: Cardiac Discharge Activity: Resume usual activity Activity Restrictions/Additional Instructions: Please stop smoking, as this significantly increases your risk of cardiovascular disease, recurrence of stroke, heart attack, increased risk of cancer, as well as other adverse effects. Please avoid drinking alcohol, as this has adverse effect on blood pressure, may lead to gain to severely elevated blood pressure, increased risk of stroke. Please monitor your blood pressure 3 times daily at home, write down values and bring a log to your appointment with your primary care provider. If you experience any weakness on one side of body, numbness, vision changes, trouble speaking, facial droop, or any other concerning symptoms, please call 911 immediately. Do not delay as this may limit your treatment options. Discharge Attestations Time Spent in Discharge Care*: greater than 30 min Quality Metrics Clinical Quality Measures During this hospital stay, did patient experience: Stroke Contraindication to Antithrombotic: Antithrombotic prescribed Contraindication to Anticoagulation: Overlap treatment not indicated Contraindication to Statin: Statin prescribed Coding Level of Care Code Acute Manager Billing for Chg Fwd Exam Comprehensive Diagnoses CVA (cerebral vascular accident) I63.9 Hypertensive urgency I16.0 Heavy drinker of alcohol Z78.9 Smoking addiction F17.200
--- NOTE | 2019-11-08 17:06 | USCV_ITS ---
Radha Leiva Age: 49 Gender: F : 1970 Exam Date: 11/08/2019 06:50 Ordering Phys: Joby Zamudio MD Technologist: Linette Rodriguez [place] [facility] [place]: [place] BP: 129 / 78 HR: 74 Rhythm: Sinus Technical Quality: Adequate MEASUREMENTS (Male / Female) Normal Values 2D ECHO LV Diastolic Diameter PLAX 3.8 cm 4.2 - 5.9 / 3.9 - 5.3 cm LV Systolic Diameter PLAX 2.9 cm LV Chamber Size 4.3 cm IVS Diastolic Thickness 1.2 cm 0.6 - 1.0 / 0.6 - 0.9 cm IVS Systolic Thickness 1.2 cm LVPW Diastolic Thickness 1.3 cm 0.6 - 1.0 / 0.6 - 0.9 cm LVPW Systolic Thickness 1.8 cm RV Chamber Size 2.3 cm LVOT Diameter 2.0 cm LV Ejection Fraction 2D Teich 48.6 % LV Ejection Fraction MOD 2C 49.8 % LV Ejection Fraction 2C AL 49.6 % LA Diameter 3.3 cm LA Width 3.6 cm LA Height 4.6 cm RA Width 2.6 cm RA Height 3.7 cm Aorta at Sinotubular Diameter 2.0 cm M-MODE LV Diastolic Diameter MM 5.4 cm 4.2 - 5.9 / 3.9 - 5.3 cm LV Systolic Diameter MM 4.3 cm LV Ejection Fraction MM Teich 40.7 % IVS Diastolic Thickness MM 1.2 cm 0.6 - 1.0 / 0.6 - 0.9 cm IVS Systolic Thickness MM 1.2 cm LVPW Diastolic Thickness MM 1.2 cm 0.6 - 1.0 / 0.6 - 0.9 cm LVPW Systolic Thickness MM 1.2 cm RV Diastolic Diameter MM 1.5 cm Aortic Annulus Diameter 3.0 cm LA Ao Ratio MM 1.1 MV E Point Septal Separation 1.1 cm DOPPLER AV Peak Velocity 141.0 cm/s LVOT Peak Velocity 111.0 cm/s AV Area Cont Eq vti 2.3 cm squared AV Area Cont Eq pk 2.6 cm squared MV Area PHT 4.5 cm squared Mitral E to A Ratio 0.8 MV E' Velocity 10.0 cm/s Mitral E to MV E' Ratio 9.4 Mitral E to LV E' Lateral Ratio 7.4 Mitral E to LV E' Septal Ratio 13.0 TV Peak E Velocity 63.0 cm/s Right Atrial Pressure 3.0 mmHg PV Peak Velocity 63.0 cm/s RV Acceleration Time 0.1 s RV Ejection Time 0.3 s RV AcT/ET 0.4 FINDINGS Left Ventricle Normal LV size with a slightly diminished ejection fraction 50%. Mild diffuse hypokinesia left ventricle. Mild concentric left ventricular hypertrophy Right Ventricle The right ventricle is normal in size and function. Right Atrium The right atrium is normal in size. Left Atrium The left atrium is normal in size. Mitral Valve Thickened mitral valve. Trace mitral valve regurgitation. Aortic Valve No gross abnormalities noted . Tricuspid Valve No gross abnormalities noted Pulmonic Valve No gross abnormalities noted Pericardium Normal pericardium without effusion. Aorta Normal ascending aorta dimension. CONCLUSIONS Normal LV size with a slightly diminished ejection fraction 50%. Mild diffuse hypokinesia of the left ventricle. Mild concentric left ventricular hypertrophy. Thickened mitral valve. Trace mitral valve regurgitation. There is no pericardial effusion. There are no intracardiac masses. There are no prior echocardiogram studies to compare. Dr Ihsan Osorio MD FACC (Electronically Signed) Final Date: 08 November 2019 12:10 S
--- NOTE | 2019-11-09 13:30 | PC.RESP ---
Smoking Cessation information sent to patient.
== END 2019-11-08 13:15 | disposition home or self-care (01) ==
LOC: ER 14:24 → MEDSURG 16:00
PROVIDERS: Family Medicine; Admitting Provider Internal Medicine; Visit Provider Internal Medicine
DX: I63.9 Cerebral infarction, unspecified (principal); I16.0 Hypertensive urgency; Z78.9 Other specified health status; F17.210 Nicotine dependence, cigarettes, uncomplicated; Z98.84 Bariatric surgery status; Z82.49 Family history of ischemic heart disease and other diseases of the circulatory system
CPT/HCPCS: 12345; 36415; 70450; 70496; 70498; 71045; 80053; 80306; 81003; 83036; 83735; 84484; 85025; 85610; 85730; 92523; 92610; 93005; 93306; 96372; 96374; 99283; 99285; G0378; J3411; J3490; Q9967